=== PATIENT | female | born 1960 | race American Indian/Alaskan Native ===

== ENCOUNTER 2016-10-01 08:50 | Emergency (ER) | payer MEDICARE, OTHER ==
[2016-10-01] MEDS ORDERED: TORADOL IM ONE (11:36)
[2016-10-01] MEDS ORDERED: CATAPRES PO ONE (11:39)
[2016-10-01 13:32] LABS: Eosinophils % (Auto) 2.4 % (0.0-4.3); Hemoglobin 14.7 gm/dl (10.1-14.3); Mean Corpuscular HGB Conc 33 % (30-34); Mean Corpuscular Hemoglobin 30 pg (28-32); Mean Corpuscular Volume 89 fl (79-97); Platelet Count 208 K/mm3 (140-440); Red Blood Count 4.95 M/mm3 (3.65-5.03); Red Cell Distribution Width 13.4 % (13.2-15.2); White Blood Count 6.8 K/mm3 (4.5-11.0)
--- NOTE | 2016-10-01 13:47 | XRay Report ---
RIGHT ANKLE RADIOGRAPHS INDICATION: Right ankle pain. COMPARISON: None similar. FINDINGS: AP, lateral and oblique right ankle radiographs demonstrate intact mortise, malleoli and talar dome contour. Normal soft tissues. CONCLUSION: No acute radiographic abnormality. Thank you for the opportunity to participate in this patient's care.
--- NOTE | 2016-10-01 13:49 | XRay Report ---
RIGHT FOOT, 3 views: History: Right foot pain. The bony architecture is intact. Bony alignment is normal. No soft tissue abnormalities are seen. The joint spaces appear preserved. IMPRESSION: Normal right foot.
[2016-10-01 13:56] LABS: Alanine Aminotransferase 20 units/L (7-56); Albumin 3.9 g/dL (3.9-5); Albumin/Globulin Ratio 0.9 %; Alkaline Phosphatase 68 units/L (35-129); Anion Gap 21 mmol/L; BUN/Creatinine Ratio 18.57; Blood Urea Nitrogen 13 mg/dL (7-17); Calcium 9.2 mg/dL (8.4-10.2); Carbon Dioxide 21 mmol/L (22-30); Chloride 104.6 mmol/L (98-107); Glucose 81 mg/dL (65-100); Potassium 3.6 mmol/L (3.6-5.0); Sodium 143 mmol/L (137-145); Total Protein 8.2 g/dL (6.3-8.2)
[2016-10-01 15:32] VITALS: BP 147/94
--- NOTE | 2016-10-01 23:32 | Emergency Department Report ---
Entered by ROXANNE MIDDLETON, acting as scribe for SHLOMO STROUD PAC. ED Extremity Problem HPI - General Chief complaint: Extremity Injury, Lower Stated complaint: RT FOOT PAIN Time Seen by Provider: 10/01/16 11:05 Source: patient Mode of arrival: Ambulatory Limitations: No Limitations - History of Present Illness Initial comments: 56 y/o female with a PMHx of HTN and hyperthyroidism presents to the ED c/o right foot pain that began 2 days ago, worsening this morning. Patient states she woke up with her pain 2 days ago. Rates pain a 10/10 in severity, which she describes as throbbing in quality. Aggravated with movement, walking, and weight bearing, and alleviated with immobilization. Denies any right foot injury , numbness, tingling, chest pain, SOB, fever, chills, nausea, and vomiting. Denies Hx of similar symptoms, any recent long travels, and surgeries. Notes PMHx of PE in 2012. Reports that she's usually active at home. Took Ibuprofen and soaked foot in Epsom salt with no relief. Patient states she is compliant to HTN medication. Patient is currently ambulatory with a cane due to right foot pain. BP is elevated in the ED today however she is not symptomatic: no chest pain, SOB, palpiations, dizziness, or blurried vision at this time. Allergic to Epidrin. Complaint: extremity pain (right foot) Onset/Timin -: days(s) Location: right, lower extremity (foot) History of Same: No -: Yes arthralgia (right foot) Radiation: none Severity scale (0 -10): 10 Quality: other (throbbing) Consistency: constant Improves with: immobilization Worsens with: weight bearing, walking, palpation Associated Symptoms: denies other symptoms, arthralgias (right foot pain). denies: chest pain, shortness of breath, fever, myalgias, rash - Related Data Previous Rx's Medication Instructions Recorded Last Taken Type ALBUTEROL Inhaler [Proair] 2 puff IH QID PRN #1 inhalation 02/08/16 Unknown Rx Azithromycin [Zithromax Z-KAMAR] 0 mg PO DAILY #6 tab 02/08/16 Unknown Rx Benzonatate [Tessalon Perles] 100 mg PO Q8HR #30 capsule 02/08/16 Unknown Rx Prednisone [predniSONE 10 mg 10 mg PO .TAPER #1 tab.ds.pk 02/08/16 Unknown Rx (6-Day Pack, 21 Tabs)] Allergies Allergy/AdvReac Type Severity Reaction Status Date / Time acetaminophen [From Epidrin] Allergy Unknown Verified 02/08/16 13:48 dichloralphenazone Allergy Unknown Verified 02/08/16 13:48 [From Epidrin] isometheptene mucate Allergy Unknown Verified 02/08/16 13:48 [From Epidrin] ED Review of Systems Comment: All other systems reviewed and negative Constitutional: denies: chills, fever Eyes: denies: eye pain, eye discharge, vision change ENT: denies: ear pain, throat pain Respiratory: denies: cough, orthopnea, shortness of breath, SOB with exertion, SOB at rest, stridor, wheezing Cardiovascular: denies: chest pain, palpitations, dyspnea on exertion, orthopnea , edema, syncope, paroxysmal nocturnal dyspnea Endocrine: no symptoms reported Gastrointestinal: denies: abdominal pain, nausea, vomiting, diarrhea Musculoskeletal: arthralgia (right foot pain). denies: back pain, joint swelling, myalgia Skin: denies: rash, lesions Neurological: denies: headache, weakness, numbness, paresthesias ED Past Medical Hx - Past Medical History Previous Medical History?: Yes Hx Hypertension: Yes Additional medical history: Hyperthyroid, PE - Surgical History Past Surgical History?: No - Family History Family history: no significant - Social History Smoking Status: Never Smoker Substance Use Type: Alcohol - Medications Home Medications: Home Medications Medication Instructions Recorded Confirmed Last Taken Type ALBUTEROL Inhaler [Proair] 2 puff IH QID PRN #1 inhalation 02/08/16 Unknown Rx Azithromycin [Zithromax Z-KAMAR] 0 mg PO DAILY #6 tab 02/08/16 Unknown Rx Benzonatate [Tessalon Perles] 100 mg PO Q8HR #30 capsule 02/08/16 Unknown Rx Prednisone [predniSONE 10 mg 10 mg PO .TAPER #1 tab.ds.pk 02/08/16 Unknown Rx (6-Day Pack, 21 Tabs)] ED Physical Exam - General Limitations: No Limitations General appearance: alert, in no apparent distress - Head Head exam: Present: atraumatic, normocephalic - Eye Eye exam: Present: normal appearance, PERRL, EOMI Pupils: Present: normal accommodation - ENT ENT exam: Present: normal exam, mucous membranes moist, normal external ear exam - Neck Neck exam: Present: normal inspection, full ROM. Absent: tenderness, meningismus, lymphadenopathy, thyromegaly - Respiratory Respiratory exam: Present: normal lung sounds bilaterally. Absent: respiratory distress, wheezes, rales, rhonchi, stridor, chest wall tenderness, accessory muscle use, decreased breath sounds - Cardiovascular Cardiovascular Exam: Present: regular rate, normal rhythm, normal heart sounds. Absent: systolic murmur, diastolic murmur, rubs, gallop - GI/Abdominal GI/Abdominal exam: Present: soft, normal bowel sounds. Absent: distended - Extremities Exam Extremities exam: Present: full ROM (limited dorsiflexion and plantar flexion due to right foot pain), tenderness (lateral foot distal to fibula radiating to lateral metatarssal area), normal capillary refill. Absent: normal inspection, pedal edema, joint swelling, calf tenderness - Expanded Lower Extremity Exam Right Hip exam: Present: normal inspection, full ROM Upper Leg exam: Present: normal inspection, full ROM Knee exam: Present: normal inspection, full ROM, full knee extension. Absent: tenderness, swelling, abrasion, laceration, ecchymosis, deformity, crepidus, dislocation, erythema, effusion, pain w/ pronation/supination, posterior draw sign, pain/laxity with valgus, pain/laxity with varus Lower Leg exam: Present: normal inspection, full ROM. Absent: tenderness, swelling, abrasion, laceration, ecchymosis, deformity, crepidus, dislocation, erythema, palpable cord, Garfield's sign Ankle exam: Present: full ROM (limited dorsiflexion and plantar flexion due to right foot pain), tenderness (lateral foot distal to fibula radiating to lateral metatarssal area). Absent: normal inspection (negative garfield's sign, no redness, swelling, or warmth at the region), swelling, abrasion, laceration, ecchymosis, deformity, crepidus, dislocation, erythema, anterior draw sign Foot/Toe exam: Present: full ROM (limited dorsiflexion and plantar flexion due to right foot pain), tenderness (lateral foot distal to fibula radiating to lateral metatarssal area). Absent: normal inspection, swelling, abrasion, laceration, ecchymosis, deformity, crepidus, dislocation, erythema, amputation, puncture wound, foreign body, calcaneal tenderness, tenderness at base of 5th metatarsal, nail avulsion, subungual hematoma Neuro vascular tendon exam: Present: no vascular compromise. Absent: pulse deficit, abnormal cap refill, motor deficit, sensory deficit, tendon deficit, extremity cold to touch, pallor, abnormal 2-point discrimination, decreased fine /light touch, foot drop, peroneal nerve deficit, significant pain with passive ROM of distal joint Gait: Positive: observed and limited by pain (cane is noted at bedside, and pt is in a wheelchair in office today) - Back Exam Back exam: Present: normal inspection, full ROM - Neurological Exam Neurological exam: Present: alert, oriented X3, normal gait (limited due to right foot pain) - Psychiatric Psychiatric exam: Present: normal affect, normal mood - Skin Skin exam: Present: warm, dry, intact. Absent: rash, cyanosis ED Course Vital Signs 10/01/16 10/01/16 10/01/16 08:58 11:29 11:44 Temperature 98.3 F Pulse Rate 92 H 75 75 Respiratory 16 18 Rate Blood Pressure 191/127 218/132 Blood Pressure 218/132 [Left] O2 Sat by Pulse 100 99 Oximetry 10/01/16 10/01/16 10/01/16 13:03 14:19 15:31 Temperature Pulse Rate 77 72 Respiratory 16 18 20 Rate Blood Pressure Blood Pressure 167/100 147/94 [Left] O2 Sat by Pulse 97 97 Oximetry ED Medical Decision Making - Lab Data Result diagrams: 10/01/16 13:14 10/01/16 13:14 - Radiology Data Radiology results: report reviewed (negative findings), image reviewed - Medical Decision Making 56 y/o F presented with a complaint of right ankle and foot pain that started with no known injury. Pt has a hx of PE in the past. A doppler US and xray was ordered. Pt was given Toradol 60 mg at the ED (allergic to epidrin) along with clonidine 0.2 mg as she was extremely hypertensive at the visit today. Pt' s BP has come down throughout ED stay, doppler US, lab work, and xrays were all unremarkable for acute changes or blood clots. Studies were shared with patient. Pt was encouraged to follow-up with PCP in the next 2 days for control of BP and pain medications at that time, she was told she may take ibuprofen OTC if needed, but to monitor her BP and to stop taking if she starts to get readings over 140/90. Pt was given an ankle brace (stirrup) today in office. pt was advised to follow-up with orthopedics for further evaluation. Pt was discharged with no resp distress. ED Disposition Clinical Impression: Right ankle pain Disposition: DC-01 TO HOME OR SELFCARE Is pt being admited?: No Does the pt Need Aspirin: No Condition: Stable Instructions: RICE Therapy (ED) Additional Instructions: Pt told that she will need to go see the PCP in the next 2 days. It is very important as uncontrolled BP can cause stroke, paralysis, end organ damage, etc. Pt advised that if any acute worsening or changes she will need to be seen here immediately. Otherwise, please follow-up with orthopedics within 5-7 days with continued or worsening symptoms. Referrals: PRIMARY CARE, [Primary Care Provider] - 3-5 Days JONATHAN KOENIG MD [Staff Physician] - 3-5 Days Forms: Work/School Release Form(ED) Time of Disposition: 15:34 This documentation as recorded by the KANE ochoa JASMINE,accurately reflects the service I personally performed and the decisions made by me,SHLOMO STROUD, PAC.
--- NOTE | 2016-10-03 08:29 | Vascular Lab Report ---
Right Lower Extremity Venous Duplex Study: Reason for Exam: Pain of the right lower extremity. Comments on the Right: All veins visualized are freely compressible without evidence of internal echogenicity. Flow is spontaneous and phasic throughout. No evidence of acute or chronic thrombus is seen in any of the vessels visualized. Comments on the Left: A limited duplex study was done of the proximal veins of the left lower extremity. All veins visualized are freely compressible without evidence of internal echogenicity. Flow is spontaneous and phasic throughout. No evidence of acute or chronic thrombus is seen in any of the vessels visualized. Impression: No evidence of acute or chronic deep venous thrombosis in the right lower extremity.
== END 2016-10-01 15:44 | disposition home or self-care (01) ==
LOC: ED 08:50
DX: M25.571 Pain in right ankle and joints of right foot (principal); I10 Essential (primary) hypertension; Z88.6 Allergy status to analgesic agent; Z88.8 Allergy status to other drugs, medicaments and biological substances
CPT/HCPCS: 36415; 73610; 73630; 80053; 85025; 85379; 85730; 93971; 96372; 99284; J1885

== ENCOUNTER 2017-02-14 09:13 | Emergency (ER) | payer OTHER ==
[2017-02-14] MEDS ORDERED: DUONEB *Not for PRN Use IH ONE (10:56)
--- NOTE | 2017-02-14 11:03 | Emergency Department Report ---
- General Chief Complaint: Upper Respiratory Infection Stated Complaint: SINUS, BODY ACHE, COUGH Time Seen by Provider: 02/14/17 10:40 Source: patient Mode of arrival: Ambulatory Limitations: No Limitations - History of Present Illness MD Complaint: nasal congestion, sinus pain -: week(s) (1) Severity: mild Consistency: intermittent Improves With: nothing Worsens With: nothing Associated Symptoms: headache, rhinorrhea, nasal congestion, sore throat, cough , rash. denies: fever, chills, myalgias, diaphoresis, stiff neck, chest pain, shortness of breath, abdominal pain, nausea, vomiting, confusion, right sweats, weight loss, epistaxis, hoarseness, ear pain - Related Data Previous Rx's Medication Instructions Recorded Last Taken Type ALBUTEROL Inhaler [Proair] 2 puff IH QID PRN #1 inhalation 02/14/17 Unknown Rx Benzonatate [Tessalon Perles] 100 mg PO Q8HR PRN #20 capsule 02/14/17 Unknown Rx Cephalexin [Keflex] 500 mg PO Q12HR #20 cap 02/14/17 Unknown Rx predniSONE [Deltasone] 20 mg PO QDAY #5 tab 02/14/17 Unknown Rx Allergies Allergy/AdvReac Type Severity Reaction Status Date / Time dichloralphenazone Allergy Unknown Verified 02/08/16 13:48 [From Epidrin] isometheptene mucate Allergy Unknown Verified 02/08/16 13:48 [From Epidrin] acetaminophen [From Epidrin] AdvReac Unknown Verified 02/14/17 10:26 ED Review of Systems ROS: Stated complaint: SINUS, BODY ACHE, COUGH Other details as noted in HPI Comment: All other systems reviewed and negative Constitutional: see HPI Eyes: as per HPI ENT: as per HPI Respiratory: see HPI Cardiovascular: as per HPI Endocrine: no symptoms reported ED Past Medical Hx - Past Medical History Previous Medical History?: Yes Hx Hypertension: Yes Additional medical history: Hyperthyroid, PE, SARCOIDOSIS;. NEW TO AREA. HX NOT CLEAR. AFTER CT TODAY GOT RASH- NEED TO MONITOR FOR ? RX TO DYE IN FUTURE - Surgical History Past Surgical History?: No - Social History Smoking Status: Never Smoker Substance Use Type: Alcohol - Medications Home Medications: Home Medications Medication Instructions Recorded Confirmed Last Taken Type ALBUTEROL Inhaler [Proair] 2 puff IH QID PRN #1 inhalation 02/14/17 Unknown Rx Benzonatate [Tessalon Perles] 100 mg PO Q8HR PRN #20 capsule 02/14/17 Unknown Rx Cephalexin [Keflex] 500 mg PO Q12HR #20 cap 02/14/17 Unknown Rx predniSONE [Deltasone] 20 mg PO QDAY #5 tab 02/14/17 Unknown Rx ED Physical Exam - General Limitations: No Limitations General appearance: alert, in no apparent distress - Head Head exam: Present: atraumatic - Eye Eye exam: Present: PERRL - ENT ENT exam: Present: mucous membranes moist - Neck Neck exam: Present: normal inspection - Respiratory Respiratory exam: Present: normal lung sounds bilaterally - Cardiovascular Cardiovascular Exam: Present: regular rate - GI/Abdominal GI/Abdominal exam: Present: soft - Rectal Rectal exam: Present: deferred - Extremities Exam Extremities exam: Present: normal inspection, full ROM - Back Exam Back exam: Present: normal inspection, full ROM. Absent: tenderness, CVA tenderness (R), CVA tenderness (L) - Neurological Exam Neurological exam: Present: alert, oriented X3, CN II-XII intact, normal gait - Psychiatric Psychiatric exam: Present: normal affect, normal mood - Skin Skin exam: Present: warm, dry, intact, rash (p ct ? rash to iv dye; discussed w pt. ) ED Course Vital Signs 02/14/17 02/14/17 02/14/17 10:26 11:23 11:31 Temperature 98.6 F Pulse Rate 90 Pulse Rate [ 94 H 95 H Bilateral Upper Lobe] Respiratory 18 Rate Respiratory 18 18 Rate [Bilateral Upper Lobe] Blood Pressure 169/106 Blood Pressure [Left] O2 Sat by Pulse 98 Oximetry 02/14/17 15:13 Temperature Pulse Rate 82 Pulse Rate [ Bilateral Upper Lobe] Respiratory 18 Rate Respiratory Rate [Bilateral Upper Lobe] Blood Pressure Blood Pressure 186/103 [Left] O2 Sat by Pulse 98 Oximetry - Reevaluation(s) Reevaluation #1: 03/01/17 to er w vague co urti new to area vss non toxic non ill no fever here w fam very nice pt given hx will workup to ro life threat Reevaluation #2: discussion w pt rt her results no pain vss bp 160/90 per manual by provider, hr 90 sat 100 on ra dc home w dc poc ED Medical Decision Making - Lab Data Result diagrams: 02/14/17 11:01 02/14/17 11:01 - EKG Data Interpretation: no acute changes - Radiology Data Radiology results: report reviewed, image reviewed - Medical Decision Making ct neg - Differential Diagnosis urti v pe given hx Critical care attestation.: If time is entered above; I have spent that time in minutes in the direct care of this critically ill patient, excluding procedure time. ED Disposition Clinical Impression: URTI (acute upper respiratory infection), Bronchitis, HTN (hypertension) Disposition: TO HOME OR SELFCARE Is pt being admited?: No Does the pt Need Aspirin: No Condition: Stable Instructions: Pneumonia in Children (ED), Hypertension (ED) Additional Instructions: REST MEDS ORDERED FOLLOW UP PCP AND PULMONOLOGY HYDRATE WELL FOLLOW YOUR BLOOD PRESSURE TAKE YOUR HOME MEDS OVER THE COUNTER MOTRIN OR TYLENOL FOR PAIN OR FEVER OVER THE COUNTER FLONASE DAILY FOR SINUS CONGESTION GIVEN YOU SARCOID AND HISTORY OF PE I'VE GIVEN YOU REFERRAL TO PULMONOLOGY Prescriptions: ALBUTEROL Inhaler [Proair] 2 puff IH QID PRN #1 inhalation PRN Reason: Shortness Of Breath Benzonatate [Tessalon Perles] 100 mg PO Q8HR PRN #20 capsule PRN Reason: Cough Cephalexin [Keflex] 500 mg PO Q12HR #20 cap predniSONE [Deltasone] 20 mg PO QDAY #5 tab Referrals: PRIMARY CAREMD [Primary Care Provider] - 3-5 Days BRANDON MIGUEL MD [Staff Physician] - 3-5 Days PIPPA DUNN MD [Staff Physician] - 3-5 Days Time of Disposition: 13:52
[2017-02-14 11:22] LABS: Hemoglobin 14.5 gm/dl (10.1-14.3); Mean Corpuscular HGB Conc 34 % (30-34); Mean Corpuscular Hemoglobin 30 pg (28-32); Mean Corpuscular Volume 89 fl (79-97); Platelet Count 168 K/mm3 (140-440); Red Blood Count 4.85 M/mm3 (3.65-5.03); Red Cell Distribution Width 13.8 % (13.2-15.2)
[2017-02-14 11:38] LABS: BUN/Creatinine Ratio 11; Blood Urea Nitrogen 9 mg/dL (7-17); Calcium 9.2 mg/dL (8.4-10.2); Hemolysis Index 3
--- NOTE | 2017-02-14 11:48 | XRay Report ---
ROUTINE CHEST, TWO VIEWS: HISTORY: Upper respiratory infection, cough. The trachea, heart, mediastinal contour, lung short and bony thorax are unremarkable. IMPRESSION: Unremarkable chest x-ray.
[2017-02-14 12:29] LABS: Anisocytosis 1+; Basophils % (Manual) 0 % (0.0-1.8); Large Platelets Few; Ovalocytes 1+; Total Cells Counted 100
[2017-02-14 13:01] LABS: Eosinophils % (Auto) 0.5 % (0.0-4.3); Monocytes # (Auto) 1.1 K/mm3 (0.0-0.8)
--- NOTE | 2017-02-14 13:37 | Cat Scan Report ---
FINAL REPORT EXAM: CT ANGIO CHEST HISTORY: concern for pe- hx of TECHNIQUE: CTA of chest with IV contrast. Coronal and sagittal and MIP reconstructed images provided. PRIORS: None currently available. FINDINGS: Peribronchial cuffing noted around the central regions of both perihilar regions identified. Perihilar ground-glass opacities noted. On series 3:37 there is a focal area of scarring, subsegmental atelectasis or consolidation in the medial aspect of the left upper lobe. Scarring favored as irregular reticular markings extend to the apical region. A mild mosaic profusion is evident particularly on series 3:59. No distinct consolidation noted. Minimal scarring or discoid subsegmental atelectasis in both lung bases noted. No centrilobular nodules. No pneumothorax. No obvious effusion. No obvious endobronchial lesion. Main pulmonary artery is unremarkable. No pulmonary embolus identified. No aortic aneurysm or dissection. Heart size is within normal limits. No pericardial effusion. Heterogenous thyroid gland. Nodules not excluded but evaluation with thyroid ultrasound recommended if clinically indicated. Axillary regions are unremarkable. Calcified hilar mediastinal lymph nodes identified. No significant mass or adenopathy noted. Images of the esophagus are unremarkable. Small hiatal hernia. Stomach is otherwise unremarkable. Calcified granulomas noted within the spleen. No suspicious osseous lesions on this limited examination of the skeleton. Metastatic disease better evaluated with bone scan. Degenerative changes are present in the spine. IMPRESSION: No pulmonary embolus. No aortic aneurysm or dissection. Bilateral perihilar peribronchial cuffing with subtle areas of ground-glass opacities and mosaic profusion. Focal scarring, subsegmental atelectasis or consolidation in the medial left upper lung also noted. Findings may represent bronchitis/bronchiolitis, reactive airway disease, fibrotic type interstitial pneumonitis, inflammatory process such as sarcoidosis, or drug reaction. Pneumonia is lower on the differential as the appearance is atypical. Small hiatal hernia.
[2017-02-14] MEDS ORDERED: BENADRYL PO ONE (14:03)
[2017-02-14] MEDS ORDERED: cefTRIAXone 1 GM in NACL 0.9% 20 ML IV ONE (15:00)
[2017-02-14 15:14] VITALS: BP 186/103
== END 2017-02-14 15:01 | disposition home or self-care (01) ==
LOC: ED 09:13
DX: J06.9 Acute upper respiratory infection, unspecified (principal); I10 Essential (primary) hypertension; J40 Bronchitis, not specified as acute or chronic; E05.90 Thyrotoxicosis, unspecified without thyrotoxic crisis or storm; Z88.8 Allergy status to other drugs, medicaments and biological substances
CPT/HCPCS: 36415; 71020; 71275; 80048; 83735; 84484; 85007; 85025; 85379; 93005; 93010; 94640; 96374; 96375; 99284; J0696; J2930; Q9967